=== PATIENT | female | born 1935 | race Caucasian/White ===

== ENCOUNTER 2017-10-06 13:35 | Emergency (ER) | payer MEDICARE, BC ==
[2017-10-06 14:21] LABS: #Basophils 0.1 thou/uL (0.0-0.2); #Eosinphils 0.4 thou/uL (0.0-0.7); #Lymphocytes 1.7 thou/uL (1.20-3.40); #Monocytes 0.7 thou/uL (0.11-0.59); #Neutrophils 7.8 thou/uL (1.40-6.50); %Basophils 0.8 % (0.0-1.0); %Eosinophils 3.3 % (0.0-10.0); %Monocytes 6.6 % (0.0-10.0); %Neutrophils 73.3 % (42.0-75.0); Hemoglobin 14.5 g/dL (12.0-16.0); Mean Corpuscular HGB CONC 32.6 g/dL (32.0-36.0); Mean Corpuscular Hemoglobin 31.2 pg (27.0-31.0); Mean Corpuscular Volume 95.7 fl (81.0-99.0); Mean Platelet Volume 7.5 fL (7.4-10.4); Platelet Count 250 thou/uL (130-400); RBC Distribution Width 13.7 % (11.5-14.5); Red Blood Cell (RBC) Count 4.65 mill/uL (4.20-5.40); White Blood Cell (WBC) Count 10.7 thou/uL (4.8-10.8)
[2017-10-06 14:45] LABS: CKMB 1.3 ng/mL (0-6.6); Troponin I 0.016 ng/mL (< 0.028)
--- NOTE | 2017-10-06 14:46 | RAD ---
RADIOGRAPH OF THE CHEST SINGLE FRONTAL VIEW: Indication: Several falls in the preceding day. Comparison: 02-05-14 FINDINGS: There is added density at the superolateral and left hemithorax, stable, which does correspond to a p leural based fat collection on prior CT 02-05-14. Cardiac silhouette is prominent in size. Otherwise, no acute process is seen. IMPRESSION: 1. Prominent sized cardiac silhouette indicating CHF. There is a right sided cardiac pacing device in place. 2. Stable pleural based density at the superolateral left hemithorax as above. POS: [facility]
[2017-10-06 14:54] LABS: ALT (SGPT) 26 U/L (8-55); AST (SGOT) 55 U/L (5-34); Albumin 4.2 g/dL (3.4-4.8); Alkaline Phosphatase 60 U/L (40-150); Anion Gap 14 mmol/L (10-20); BUN (Urea Nitrogen) 11 mg/dL (9.8-20.1); CK (CPK) 54 U/L (29-168); Calc. Creatinine Clearance 0 mL/min (70-130); Calcium 9.9 mg/dL (7.8-10.44); Carbon Dioxide 22 mmol/L (23-31); Chloride 101 mmol/L (98-107); Estimated GFR-MDRD 73; Globulin 4.5 g/dL (2.4-3.5); Glucose 88 mg/dL (83-110); Lipase 23 U/L (8-78); Potassium 5.2 mmol/L (3.5-5.1); Protein, Total 8.7 g/dL (6.0-8.3); Sodium 132 mmol/L (136-145)
[2017-10-06 16:11] LABS: Bilirubin Negative (Negative); Blood, Urine Trace (Negative); Clarity CLOUDY (Clear); Glucose, Urine (Dipstick) Negative (Negative); Leukocyte Large (Negative); Nitrite Negative (Negative); Protein, Urine (Dipstick) Negative (Neg-Trace); Specific Gravity, Urine 1.022 (1.002-1.036); Urobilinogen 0.2 mg/dL (0.2-1.0)
[2017-10-06 16:13] LABS: Bacteria/HPF 3+ HPF (None Seen); Hyaline Casts/LPF 0-3 HYALINE CAST LPF (0-3 Hyaline); Pathc Cast-AUWi Flag 0.81 (0-2.49); RBC/HPF 0-3 HPF (0-3); Yeast-AUWi Flag 191.6 (0-25.0)
[2017-10-06 16:19] LABS: Yeast-All Forms Rare HPF (None Seen)
[2017-10-06 16:20] LABS: Crystals/HPF RARE CA OXALATE HPF (Negative)
[2017-10-06] MEDS ORDERED: cefTRIAXone\\ROCEPHIN 1 GM VIAL IM SCH (17:15)
[2017-10-06] MEDS ORDERED: Lidocaine 1% PF 5 ML VIAL FS SCH (17:15)
[2017-10-06] MEDS ORDERED: Lidocaine 1% (PF) 30 ML VIAL ONE (17:52)
== END 2017-10-06 18:31 | disposition home or self-care (01) ==
LOC: ERS 13:35
DX: R53.1 Weakness (principal); R19.7 Diarrhea, unspecified; N39.0 Urinary tract infection, site not specified; E03.9 Hypothyroidism, unspecified; I11.0 Hypertensive heart disease with heart failure; I50.9 Heart failure, unspecified; Z79.899 Other long term (current) drug therapy
CPT/HCPCS: 71045; 80053; 81003; 81015; 82274; 82550; 82553; 83630; 83690; 84484; 85025; 87045; 87046; 87086; 87324; 87328; 87329; 87449; 87899; 93005; 96372; J0696; J2001

== ENCOUNTER 2018-02-04 14:14 | Emergency (ER) | payer MEDICARE, BC ==
[2018-02-04 15:15] LABS: #Eosinphils 0.1 thou/uL (0.0-0.7); #Monocytes 1.2 thou/uL (0.11-0.59); #Neutrophils 6.3 thou/uL (1.40-6.50); %Basophils 0.4 % (0.0-1.0); %Eosinophils 0.8 % (0.0-10.0); %Lymphocytes 20.5 % (21.0-51.0); %Monocytes 12.2 % (0.0-10.0); %Neutrophils 66.1 % (42.0-75.0); Hemoglobin 14.2 g/dL (12.0-16.0); Mean Corpuscular HGB CONC 33.2 g/dL (32.0-36.0); Mean Corpuscular Hemoglobin 31.6 pg (27.0-31.0); Mean Corpuscular Volume 95.1 fl (81.0-99.0); Mean Platelet Volume 7.2 fL (7.4-10.4); Platelet Count 199 thou/uL (130-400); RBC Distribution Width 12.8 % (11.5-14.5); Red Blood Cell (RBC) Count 4.49 mill/uL (4.20-5.40); White Blood Cell (WBC) Count 9.5 thou/uL (4.8-10.8)
[2018-02-04 15:36] LABS: ALT (SGPT) 13 U/L (8-55); AST (SGOT) 23 U/L (5-34); Albumin 4.1 g/dL (3.4-4.8); Alkaline Phosphatase 73 U/L (40-150); Anion Gap 11 mmol/L (10-20); BUN (Urea Nitrogen) 13 mg/dL (9.8-20.1); CK (CPK) 50 U/L (29-168); Calc. Creatinine Clearance 0 mL/min (70-130); Calcium 9.3 mg/dL (7.8-10.44); Carbon Dioxide 27 mmol/L (23-31); Chloride 100 mmol/L (98-107); Estimated GFR-MDRD 66; Globulin 3.7 g/dL (2.4-3.5); Glucose 92 mg/dL (83-110); Potassium 4.2 mmol/L (3.5-5.1); Protein, Total 7.8 g/dL (6.0-8.3); Sodium 134 mmol/L (136-145)
[2018-02-04 15:38] LABS: Bilirubin Negative (Negative); Blood, Urine Trace (Negative); Clarity CLEAR (Clear); Glucose, Urine (Dipstick) Negative (Negative); Leukocyte Moderate (Negative); Nitrite Negative (Negative); Protein, Urine (Dipstick) Negative (Neg-Trace); Specific Gravity, Urine 1.011 (1.002-1.036)
[2018-02-04 15:41] LABS: Bacteria/HPF None Seen HPF (None Seen); Hyaline Casts/LPF 0-3 HYALINE CAST LPF (0-3 Hyaline); Pathc Cast-AUWi Flag 0.29 (0-2.49); RBC/HPF 0-3 HPF (0-3)
[2018-02-04 15:46] LABS: CKMB 0.8 ng/mL (0-6.6); Troponin I 0.017 ng/mL (< 0.028)
--- NOTE | 2018-02-04 15:52 | RAD ---
LEFT KNEE 4 VIEWS: Date: 02/04/18 HISTORY: Knee pain. FINDINGS: There are arthritic changes in the knee. There is medial and lateral compartment narrowing, and some patellofemoral spur formation. A small joint effusion is seen. I do not see any signs of fracture. Th ere is calcification of meniscal cartilage consistent with chondrocalcinosis. IMPRESSION: Moderate arthritic changes of the knee with a small joint effusion. POS: [facility]
[2018-02-04] MEDS ORDERED: cefTRIAXone\\ROCEPHIN 1 GM VIAL ONE (16:30)
[2018-02-04] MEDS ORDERED: Lidocaine 1% (PF) 30 ML VIAL ONE (16:31)
== END 2018-02-04 17:18 | disposition home or self-care (01) ==
LOC: ERS 14:14
DX: N39.0 Urinary tract infection, site not specified (principal); M19.90 Unspecified osteoarthritis, unspecified site; E03.9 Hypothyroidism, unspecified; I11.0 Hypertensive heart disease with heart failure; I50.9 Heart failure, unspecified; H40.9 Unspecified glaucoma
CPT/HCPCS: 36415; 80053; 81003; 81015; 82550; 82553; 83880; 84484; 85025; 93005; 96372; J0696; J2001